=== PATIENT | male | born 1985 | race Caucasian/White ===

== ENCOUNTER 2018-10-15 15:52 | Observation (INO) ==
[2018-10-15 16:39] LABS: Basophils # (auto) 0.02 K/uL (0-0.2); Basophils % (auto) 0.1 %; Eosinophils # (auto) 0.05 K/uL (0-0.5); Eosinophils % (auto) 0.4 %; Hematocrit (blood only) 41.9 % (42-52); Hemoglobin 14.7 g/dL (14.0-18.0); Immature Granulocytes # (auto) 0.02 K/uL (0.00-0.02); Immature Granulocytes % (auto) 0.1 %; Lymphocytes # (auto) 2.31 K/uL (1.2-3.4); Mean Corpuscular Hgb Conc 35.1 g/dL (32-36); Mean Corpuscular Volume 86.4 fL (80-100); Mean Platelet Volume 10.9 fL (7.4-10.4); Monocytes # (auto) 0.98 K/uL (0.11-0.59); Monocytes % (auto) 7.2 %; Neutrophils # (auto) 10.19 K/uL (1.4-6.5); Neutrophils % (auto) 75.2 %; Platelet Count 237 K/uL (130-400); RDW Coefficient of Variation 13.3 % (11.5-14.5); RDW Standard Deviation 41.9 fL (36.4-46.3); Red Blood Count 4.85 M/uL (4.7-6.1); White Blood Count 13.57 K/uL (4.8-10.8)
[2018-10-15] MEDS ORDERED: KETOROLAC TROMETHAMINE 15 MG/ML VIAL IV ONE (16:47)
[2018-10-15] MEDS ORDERED: SODIUM CHLORIDE 0.9% 1000ML 1,000 ML IV SCH (17:00)
[2018-10-15 17:06] LABS: Albumin Level 3.8 gm/dl (3.4-5.0); BUN Creatinine Ratio 15.7 (10-20); Calcium 9.2 mg/dl (8.5-10.1); Creatinine Clr Calc Pharmacy 112.6 ml/min; Est GFR (African American) 133.6; Est GFR (Non-African American) 115.3; Potassium 4.1 mmol/L (3.5-5.1)
[2018-10-15 17:08] LABS: Albumin Globulin Ratio 0.8 (0.9-2); Bilirubin,Total 0.5 mg/dl (0.2-1); Globulin 4.8 gm/dl (2.5-4.0); Total Protein 8.6 gm/dl (6.4-8.2)
[2018-10-15] MEDS ORDERED: IOVERSOL 100ml IV PRN (17:19)
--- NOTE | 2018-10-15 17:29 | CT Scan Report ---
CT pelvis w/IV con only CLINICAL HISTORY: Rectal abscess. Possible fistula. COMPARISON STUDY: No previous studies for comparison. FINDINGS: The patient was scanned without oral contrast, and in a dynamic helical fashion during intr avenous administration of 94 cc of Optiray 320. The appendix appears normal. There is no evidence of abdominal aortic dilatation. There is no evidence of acute diverticulitis. There is no ascites. There is no pathologic adenopathy. No destructive skeletal lesions are visualized. There is a fluid collection in the left medial gluteal fold measuring 22 x 15 x 22 mm. This statistic ally represents a perianal/gluteal fold abscess. A discrete fistulous tract to the anus is not visual ized however this would be quite difficult to delineate on CT scanning. IMPRESSION: 1. 22 x 15 x 22 mm left medial gluteal fold fluid collection, suspicious for an abscess 2. Normal appendix 3. No evidence of pathologic bowel wall thickening Electronically signed by: Clarence Lawler M.D. 10/15/2018 5:28 PM
[2018-10-15] MEDS ORDERED: MoRPHine SULFATE 2 MG/ML CARP IV STA (17:39)
--- NOTE | 2018-10-15 18:00 | Emergency Department Note ---
ED Visit Note I took a history and physical exam from the patient and coordinated management with Dr. Vazquez .
[2018-10-15] MEDS ORDERED: MIDAZOLAM HCL 1 MG/ML 2ML VIAL ONE (18:31)
[2018-10-15] MEDS ORDERED: fentaNYL citrate 100 MCG/2 ML VIAL ONE ×2 (18:31→19:19)
--- NOTE | 2018-10-15 18:41 | Surgery Consultation ---
Date of Consultation October 15, 2018 Assessment & Plan (1) Abscess, perianal: pt is a 33 year old male who presents to ER with rectal pain, IMP: darin-anal abscess Plan, I recommend to do I/D darin-anal abscess, D/W benefits, risks nad alternatives of lexx surgery, the risks- infection , bleeding, sepsis, pt's friend who translate to pt, pt understood, he signed consent, I answered all questions, History of Present Illness History of Present Illness CC rectal pain pt is a 33 year old male who presents to ER with 4 days history rectal pain with constipation, lower temperature, 37.5, pt denies abdominal pain, no rectal bleeding, CT scan - darin-naal abscess, pt's friend who translate to pt, Allergies Allergy/AdvReac Type Severity Reaction Status Date / Time No Known Allergies Allergy Unverified 10/15/18 17:55 Home Medications Home Medications Medication Instructions Recorded Confirmed Type No Known Home Medications 10/15/18 10/15/18 History Patient History Medical History Constipation Social History current occupational status: employed Feels Safe at Home: Yes Smoking Status: Current some day smoker Review of Systems Constitutional: as per Subjective / HPI Ear, Nose, Mouth, Throat: as per Subjective / HPI Respiratory: as per Subjective / HPI Cardiovascular: as per Subjective / HPI Gastrointestinal: as per Subjective / HPI Neurologic: as per Subjective / HPI Psychiatric: as per Subjective / HPI Endocrine: as per Subjective / HPI Hematologic / Lymphatic: as per Subjective / HPI Physical Exam Vital Signs (Past 24 Hours): Last Vital Signs Temp 37.5 C 10/15/18 16:01 Pulse 91 H 10/15/18 16:01 Resp 19 10/15/18 16:01 BP 132/84 10/15/18 16:01 Pulse Ox 98 10/15/18 16:01 Constitutional: WD/WN, vitals as above well developed and well nourished Neck: trachea midline, no thyromegaly Respiratory: normal respiratory effort, lungs clear to auscultation normal respiratory effort Cardiovascular: RRR, no murmur, no edema Rate/Rhythm: regular rate and regular rhythm Heart Sounds: normal S1 and normal S2 Gastrointestinal (Abdomen): normal bowel sounds, soft, nontender, no hepatosplenomegaly Percussion/Palpation: abdomen soft NT, ND, BS +, rectal exam; tenderness and redness at left darin-anal area, size 3x3cm, Neurologic: awake Psychiatric: Orientation: alert and oriented x 3 Results & Data Laboratory Results Abnormal lab results 10/15/18 10/15/18 Range/Units 16:20 16:20 WBC 13.57 H (4.8-10.8) K/uL Hct 41.9 L (42-52) % MPV 10.9 H (7.4-10.4) fL Neut # (Auto) 10.19 H (1.4-6.5) K/uL Addison # (Auto) 0.98 H (0.11-0.59) K/uL Glucose 109 H (70-99) mg/dl Total Protein 8.6 H (6.4-8.2) gm/dl Globulin 4.8 H (2.5-4.0) gm/dl Albumin/Globulin Ratio 0.8 L (0.9-2) Diagnostic Findings CT pelvis w/IV con only CLINICAL HISTORY: Rectal abscess. Possible fistula. COMPARISON STUDY: No previous studies for comparison. FINDINGS: The patient was scanned without oral contrast, and in a dynamic helical fashion during intravenous administration of 94 cc of Optiray 320. The appendix appears normal. There is no evidence of abdominal aortic dilatation. There is no evidence of acute diverticulitis. There is no ascites. There is no pathologic adenopathy. No destructive skeletal lesions are visualized. There is a fluid collection in the left medial gluteal fold measuring 22 x 15 x 22 mm. This statistically represents a perianal/gluteal fold abscess. A discrete fistulous tract to the anus is not visualized however this would be quite difficult to delineate on CT scanning. IMPRESSION: 1. 22 x 15 x 22 mm left medial gluteal fold fluid collection, suspicious for an abscess 2. Normal appendix 3. No evidence of pathologic bowel wall thickening
--- NOTE | 2018-10-15 18:45 | History & Physical Bridge Note ---
Date of Service October 15, 2018 History & Physical Bridge Note I have examined the patient, reviewed the History & Physical and in the interval since the performance of the History & Physical I have noted the following changes of clinical significance: no changes noted
--- NOTE | 2018-10-15 18:52 | Anesthesiology Consultation ---
Date of Service October 15, 2018 Patient mostly speaks [place] Islander. Assessment & Plan Chart Review Chart Review: Acceptable Risk for Surgery and Patient NOT seen in Pre Admission Testing Consults Requested none ASA ASA2 Proposed Anesthesia Anesthesia Type: General Risk / Benefits Reviewed With: PT / POA / Parent / Guardian, Accepts Plan and Informed Consent Obtained NPO Date Last Intake of Fluids: 10/15/18 Time Last Intake of Fluids: 12:00 Date Last Intake of Solids: 10/15/18 Time Last Intake of Solids: 10:00 History Surgery Operation Date: 10/15/18 19:00 Proposed Procedures p Rectal Surgery - Jackie Coleman MD Height/Weight Height: 5 ft 6 in Weight: 74.5 kg Allergies Allergy/AdvReac Type Severity Reaction Status Date / Time No Known Allergies Allergy Unverified 10/15/18 17:55 Medications Home Medications Medication Instructions Recorded Confirmed Last Taken No Known Home Medications 10/15/18 10/15/18 Unknown Active Medications Generic Name Dose Route Start Last Admin Trade Name Freq PRN Reason Stop Dose Admin Ioversol 94 ml 10/15/18 17:19 10/15/18 17:19 Optiray 320 100ml IV 10/19/18 17:18 94 ml ONCE PRN Administration Interaction Checking Past Medical History Medical History Abscess, perianal (Acute) Constipation Smoker Past Anesthesia History No Hx of Anesthesia Complications and No Family Hx of Anesthesia Complications History of PONV No Motion Sickness Screening History of Motion Sickness: No Social History Smoking Status: Current some day smoker Exercise / Class Metabolic Activity II 4-5 Yardwork/Stairs/Walk up hill Review of Systems no chest pain or sob Physical Exam Vital Signs Last Vital Signs Temp 37.5 C 10/15/18 16:01 Pulse 93 H 10/15/18 18:50 Resp 18 10/15/18 18:50 BP 126/82 10/15/18 18:50 Pulse Ox 99 10/15/18 18:50 ENMT Mouth: no TMJ abnormality Thyromental Distance: > or= 3.5 Finger Breadths Mallampati Class: II Neck normal visual inspection Respiratory normal respiratory effort Cardiovascular Rate/Rhythm: regular rate and regular rhythm Neurologic moves all extremities Psychiatric Orientation: alert and oriented x 3 Testing Laboratory Results 10/15/18 16:20 10/15/18 16:20
[2018-10-15] MEDS ORDERED: LIDOCAINE HCL 1% 20 ML VIAL ONE (18:53)
[2018-10-15] MEDS ORDERED: BUPIVACAINE 0.5 % 5 MG/1 ML MPF 30ML VIAL ONE (18:53)
[2018-10-15] MEDS ORDERED: BACITRACIN OINT 15 GM TUBE ONE (18:53)
[2018-10-15] MEDS ORDERED: LABETALOL HCL IV 5 MG/ML 20ML IV PRN (18:55)
[2018-10-15] MEDS ORDERED: ePHEDrine sulfate 50 MG/ML AMP IV PRN (18:55)
[2018-10-15] MEDS ORDERED: HYDROmorphone INJ 1 MG/ML SYRINGE IV PRN (18:55)
[2018-10-15] MEDS ORDERED: PHENYLEPHRINE 100MCG/ML 5ML SYR IV PRN (18:55)
[2018-10-15] MEDS ORDERED: ATROPINE SULFATE 0.1 MG/ML 10ML SYR IV PRN (18:55)
[2018-10-15] MEDS ORDERED: ONDANSETRON INJ 2 MG/ML 2 ML VIAL IV PRN ×2 (18:55→19:33)
[2018-10-15] MEDS ORDERED: fentaNYL citrate 100 MCG/2 ML VIAL IV PRN (18:55)
[2018-10-15] MEDS ORDERED: MEPERIDINE HCL 25 MG/ML CARP IV PRN (18:55)
[2018-10-15] MEDS ORDERED: PROPOFOL IV EMULSION 10 MG/ML 20 ML VIAL IV ONE (18:57)
[2018-10-15] MEDS ORDERED: LIDOCAINE HCL 2% 2 ML VIAL/AMP(20MG/ML) INFIL ONE (18:57)
[2018-10-15] MEDS ORDERED: CEFAZOLIN 2000MG 2,000 MG/15 ML SYR IV SCH (19:00)
[2018-10-15] MEDS ORDERED: DEXAMETHASONE SOD INJ 4 MG/ML VIAL ONE (19:14)
[2018-10-15] MEDS ORDERED: ONDANSETRON INJ 2 MG/ML 2 ML VIAL ONE (19:14)
[2018-10-15] MEDS ORDERED: CEFAZOLIN 250 MG/ML 1 GM VIAL ONE (19:14)
[2018-10-15] MEDS ORDERED: KETOROLAC 30 MG/ML VIAL ONE (19:20)
--- NOTE | 2018-10-15 19:30 | Emergency Department Note ---
Entered by Shane Hearn acting as a scribe for History of Present Illness General Chief complaint: Abdominal Pain Stated complaint: LOWER ABDOMINAL PAIN Time Seen by Provider: 10/15/18 16:07 Source: patient Limitations: no limitations History of Present Illness Provider complaint: Rectal pain Onset (ago): day(s) (4) Location: buttocks Pain Consistency: + constant Maximum Pain Intensity: 10 Quality: + other ("pressure" over rectum) Treatments prior to arrival: other (MiraLax, Glycerin Suppository ) This history is provided by the patient's friend at bedside as he does not speak Spanish. The patient is a 33 year old male who presents to the Emergency Room with complaints of constant rectal pain for the past 4 days. The friend at bedside states that the patient has been constipated since this past Saturday. He tried a Glycerin Suppository and MiraLax, but did not produce any stool. Saturday the patient went to the walk-in clinic and was given MiraLax and DulcoLax. He did produce a bowel movement on Saturday, two days ago. After the stool the patient's rectal pain persisted. He describes his current pain as a "pressure" over his rectum. He denies any radiation of the pain. No other exacerbating or remitting factors. Home Medications Home Medications Medication Instructions Recorded Confirmed Type No Known Home Medications 10/15/18 10/15/18 History Allergies Allergy/AdvReac Type Severity Reaction Status Date / Time No Known Allergies Allergy Unverified 10/15/18 17:55 Past Med/Surg History Medical History Abscess, perianal (Acute) Constipation Smoker Social History current occupational status: employed Feels Safe at Home: Yes Smoking Status: Current some day smoker Review of Systems See HPI for pertinent positives & negatives. and A total of 10 systems reviewed and were otherwise negative Physical Exam Vital Signs Vital Signs - 24 hr 10/15/18 16:01 10/15/18 18:50 Temperature 37.5 C Temperature Source Oral Sepsis Recent Fever Within 48 Hours No Sepsis Action Taken by Nursing No Action Required Pulse Rate 91 H Pulse Rate [Finger] 93 H Respiratory Rate 19 18 Respiratory Effort / Characteristics Non-Labored Respiratory Depth Normal Blood Pressure 132/84 Blood Pressure [Right Arm] 126/82 Blood Pressure Mean 100 Blood Pressure Mean [Right Arm] 96 Blood Pressure Position Sitting Pulse Oximetry 98 99 Oxygen Delivery Method Room Air Room Air GENERAL: Sitting up in bed, alert, well appearing, well nourished, no distress, non-toxic EYE EXAM: normal conjunctiva. OROPHARYNX: no exudate, no erythema, lips, buccal mucosa, and tongue normal and mucous membranes are moist NECK: supple, no nuchal rigidity, no adenopathy, non-tender LUNGS: Clear to auscultation. Normal chest wall mechanics HEART: no murmurs, S1 normal and S2 normal ABDOMEN: abdomen soft, non-tender, normo-active bowel, sounds, no masses, no rebound or guarding. BACK: Back is symmetrical on inspection and there is no deformity, no midline tenderness, no CVA tenderness. SKIN: no rashes and no bruising UPPER EXTREMITIES: upper extremities are grossly normal. LOWER EXTREMITIES: No pitting edema. NEURO EXAM: Normal sensorium, cranial nerves II-XII grossly intact, normal speech, no gross weakness of arms, no gross weakness of legs. RECTAL: at the 9-12 o'clock position there is a 1 inch area of fluctuance. No surrounding erythema or induration. Tracking towards anus. Course ED COURSE: Vital signs were reviewed and showed normal vitals. The patients medical record was reviewed The above diagnostic studies were performed and reviewed. ED treatments and interventions as stated above. 1636: The patient was evaluated in room C12A. A complete history and physical examination was performed. 1823: The patient was seen and evaluated by Dr. Coleman - General Surgery. He will take him to the OR now. Administered Medications Ioversol (Optiray 320 100ml) 94 ml IV ONCE PRN PRN Reason: Interaction Checking Stop: 10/19/18 17:18 Last Admin: 10/15/18 17:19 Dose: 94 ml Documented by: [id number] Discontinued Medications Sodium Chloride (Nss 1000ml) 1,000 mls @ 999 mls/hr IV .Q1H1M OMAR Stop: 10/15/18 18:00 Last Infusion: 10/15/18 18:28 Dose: 0 mls/hr Documented by: [id number] Admin: 10/15/18 17:01 Dose: 999 mls/hr Documented by: [id number] Ketorolac Tromethamine (Toradol) 15 mg IV NOW ONE Stop: 10/15/18 16:48 Last Admin: 10/15/18 17:01 Dose: 15 mg Documented by: [id number] Medical Decision Making Differential Diagnosis Differential diagnosis: Etiologies such as functional constipation, drug effect, lack of activity, impaction, obstruction, volvulus, metabolic abnormality, infection, neurologic process, as well as others were entertained. Medical Records Attestation: I reviewed the patient's medical records. Home Medications Current Medication List: was personally reviewed by me Laboratory Data Attestation: I reviewed the patient's lab results. Result diagrams: 10/15/18 16:20 10/15/18 16:20 Lab Results 10/15/18 10/15/18 Range/Units 16:20 16:20 WBC 13.57 H (4.8-10.8) K/uL RBC 4.85 (4.7-6.1) M/uL Hgb 14.7 (14.0-18.0) g/dL Hct 41.9 L (42-52) % MCV 86.4 (80-100) fL MCH 30.3 (25-34) pg MCHC 35.1 (32-36) g/dL RDW Std Deviation 41.9 (36.4-46.3) fL RDW Coeff of Don 13.3 (11.5-14.5) % Plt Count 237 (130-400) K/uL MPV 10.9 H (7.4-10.4) fL Immature Gran % (Auto) 0.1 % Neut % (Auto) 75.2 % Lymph % (Auto) 17.0 % Harrison % (Auto) 7.2 % Eos % (Auto) 0.4 % Baso % (Auto) 0.1 % Immature Gran # (Auto) 0.02 (0.00-0.02) K/uL Neut # (Auto) 10.19 H (1.4-6.5) K/uL Lymph # (Auto) 2.31 (1.2-3.4) K/uL Harrison # (Auto) 0.98 H (0.11-0.59) K/uL Eos # (Auto) 0.05 (0-0.5) K/uL Baso # (Auto) 0.02 (0-0.2) K/uL Sodium 137 (136-145) mmol/L Potassium 4.1 (3.5-5.1) mmol/L Chloride 103 (98-107) mmol/L Carbon Dioxide 27 (21-32) mmol/L Anion Gap 6.0 (3-11) BUN 13 (7-18) mg/dl Creatinine 0.85 (0.6-1.4) mg/dl Est Cr Clr Drug Dosing 112.6 ml/min Est GFR ( Amer) 133.6 Est GFR (Non-Af Amer) 115.3 BUN/Creatinine Ratio 15.7 (10-20) Glucose 109 H (70-99) mg/dl Calcium 9.2 (8.5-10.1) mg/dl Total Bilirubin 0.5 (0.2-1) mg/dl AST 16 (15-37) U/L ALT 19 (12-78) U/L Alkaline Phosphatase 90 (45-117) U/L Total Protein 8.6 H (6.4-8.2) gm/dl Albumin 3.8 (3.4-5.0) gm/dl Globulin 4.8 H (2.5-4.0) gm/dl Albumin/Globulin Ratio 0.8 L (0.9-2) Lipase 82 (73-393) U/L Imaging Data Attestation: I personally reviewed and interpreted this imaging study as follows: Radiologist's Impression: CT pelvis w/IV con only CLINICAL HISTORY: Rectal abscess. Possible fistula. COMPARISON STUDY: No previous studies for comparison. FINDINGS: The patient was scanned without oral contrast, and in a dynamic helical fashion during intravenous administration of 94 cc of Optiray 320. The appendix appears normal. There is no evidence of abdominal aortic dilatation. There is no evidence of acute diverticulitis. There is no ascites. There is no pathologic adenopathy. No destructive skeletal lesions are visualized. There is a fluid collection in the left medial gluteal fold measuring 22 x 15 x 22 mm. This statistically represents a perianal/gluteal fold abscess. A discrete fistulous tract to the anus is not visualized however this would be quite difficult to delineate on CT scanning. IMPRESSION: 1. 22 x 15 x 22 mm left medial gluteal fold fluid collection, suspicious for an abscess 2. Normal appendix 3. No evidence of pathologic bowel wall thickening Electronically signed by: Clarence Lawler M.D. 10/15/2018 5:28 PM Blood Pressure Blood Pressure Findings: Normal blood pressure MDM Narrative Patient is a 33-year-old male who presents the ER for rectal pain. This is been there for the past week and getting worse. On exam he has a likely rectal abscess. Labs were obtained and showed a leukocytosis of 13.5 thousand. No significant anemia. BMP along with LFTs bilirubin lipase was unremarkable. CT abdomen pelvis confirms darin-anal abscess. Patient was given IV Zofran and Toradol. Patient was updated and discussed with the hospitalist. Patient was taken to the OR for the perianal abscess. Impression & Plan Abscess, perianal Discharge Plan Visit Data Chief Complaint: Abdominal Pain Stated Complaint: LOWER ABDOMINAL PAIN ED Provider: Brent Vazquez ED Midlevel Provider: Abimael Bustillo Discharge Problem: Abscess, perianal Patient Disposition: Being Evaluated by Surgeon Discharge Instructions Interventions: ED Discharge Assessment Last Done: 10/15/18 18:52 Forms Stand Alone Forms: Call Back Authorization, [facility], Important Visit Information Prescriptions Prescriptions: No Action No Known Home Medications RF: 0 Referrals Referrals: PCP,NO [Primary Care Provider] - The scribe's documentation has been prepared under my direction and personally reviewed by me in its entirety. I confirm that the note above accurately reflects all work, treatment, procedures, and medical decision making performed by me.
--- NOTE | 2018-10-15 19:31 | Post Operative Brief Note ---
Immediate Post Op Note v1 Date of Surgery October 15, 2018 Pre & Post Diagnosis Operation Date: 10/15/18 19:00 Pre-Op Diagnosis: Darin rectal abscess Post-Op Diagnosis: Darin rectal abscess Procedure Operation Date: 10/15/18 19:00 Actual Procedures p Incision and Drainage of Darin Rectal Abscess - Jackie Coleman MD Surgeon Jackie Coleman MD [employer] certified surgical tech/first assistant Estimated Blood Loss 10 Findings Consistent with Post-Op Diagnosis left darin-rectal abscess Fluids 600ml Specimens wound culture sent Drains Other (packing the wound) Anesthesia Type General Complications none Disposition Accompanied Patient To Recovery: Yes Disposition: Recovery Room Overlapping Procedure I was immediately available: during the entire case.
[2018-10-15] MEDS ORDERED: OXYCODONE/ACETAMINOPHEN 5mg/325mg TAB PO PRN (19:36)
[2018-10-15] MEDS ORDERED: HYDROmorphone INJ 0.5 MG/0.5 ML SYR IV PRN (19:37)
[2018-10-15] MEDS ORDERED: CEFAZOLIN 2000MG 2,000 MG/15 ML SYR IV ONE (19:41)
--- NOTE | 2018-10-15 19:55 | Anesthesiology Progress Note ---
Date of Service October 15, 2018 Anesthesia Post Procedure Vital Signs Vital Signs: Temp Pulse Pulse Resp BP BP Pulse Ox 10/15/18 19:50 75 19 118/72 100 10/15/18 19:45 77 17 114/75 99 10/15/18 19:42 79 19 96 10/15/18 19:40 81 19 116/72 97 10/15/18 19:39 36.9 C 85 16 116/72 97 10/15/18 18:50 93 H 18 126/82 99 10/15/18 16:01 37.5 C 91 H 19 132/84 98 Notes Mental Status: alert / awake / arousable Patient Amnestic to Procedure: Yes Nausea / Vomiting: adequately controlled Pain: adequately controlled Airway Patency, RR, SpO2: stable & adequate BP & HR: stable & adequate Hydration State: stable & adequate Anesthetic Complications: no major complications apparent and Pt Satisfied with anesthetic care
[2018-10-15] MEDS: LACTATED RINGER'S 1,000 ML IV SCH (21:21)
[2018-10-15] MEDS: CIPROFLOXACIN 400 MG/200 ML BAG IV SCH (21:40)
[2018-10-15] MEDS: metroNIDAZOLE 500 MG/100 ML BAG IV SCH (22:32)
[2018-10-16 00:08] LABS: Appearance Urine Clear (Clear); Bacteria Urine Automated Negative (Negative); Bilirubin Urine Negative (Negative); Blood Urine 2+ (Negative); Color Urine Yellow; Glucose Urine UA Trace (Negative); Ketones Urine Negative (Negative); Leukocyte Esterase Urine Negative (Negative); Nitrite Urine Negative (Negative); Protein Urine 1+ (Negative); Specific Gravity Urine 1.042 (1.000-1.030); Urobilinogen Urine Negative (Negative)
--- NOTE | 2018-10-16 03:02 | Operative Report ---
DATE OF OPERATION: 10/15/2018 PREOPERATIVE DIAGNOSIS: Perirectal abscess. POSTOPERATIVE DIAGNOSIS: Perirectal abscess. OPERATION: I and D of perirectal abscess. SURGEON: Jackie Coleman MD ANESTHESIA: General. ESTIMATED BLOOD LOSS: About 10 mL FINDINGS: Perirectal abscess on the left side. COMPLICATIONS: None. INDICATIONS FOR THE PROCEDURE: This is a 33-year-old gentleman who presented with rectal pain and the patient had a CT scan diagnosis of perirectal abscess. I recommend to do the I and D of perirectal abscess. I did talk to the patient about the benefit and risk, alternate procedure. I indicated the risks may include but not limited such as bleeding, infection, recurrence, sepsis. The patient understands via the assistant director. He signed informed consent and I answered all questions. DETAILS OF PROCEDURE: We brought the patient to the OR, put the patient in the supine position. The patient received SCD on bilateral legs to prevent DVT. Also, patient received 2 grams Ancef IV for prophylactic antibiotic. The patient received general anesthesia without difficulty. Then we repositioned to the lithotomy position. The rectal area was prepped and draped in routine sterile fashion. After a timeout, I injected local anesthesia by using 1% lidocaine mixed with 0.5% Marcaine around the rectal area. Then we found the patient has an abscess on the left side perirectal size about 3 x 4 cm. Then I made about 3 cm incision on the left side perirectal area. There was pus immediately come out about 10 mL Once we cleaned up all of the abscess cavity and we packed with quarter inch Kerlix. Hemostasis again obtained. Then we put the dressing on. The patient tolerated the procedure well. All the instrument, needle and sponge count were correct x2 at the end of case. The patient transferred to recovery room in stable condition. After the procedure, I did talk to the patient's friend who is a assistant director. She understands. I attest to the content of the Intraoperative Record and any orders documented therein. Any exception s are noted below.
[2018-10-16 05:10] LABS: Basophils # (auto) 0.01 K/uL (0-0.2); Basophils % (auto) 0.1 %; Eosinophils # (auto) 0.01 K/uL (0-0.5); Eosinophils % (auto) 0.1 %; Hematocrit (blood only) 38.1 % (42-52); Hemoglobin 12.8 g/dL (14.0-18.0); Immature Granulocytes # (auto) 0.02 K/uL (0.00-0.02); Immature Granulocytes % (auto) 0.2 %; Lymphocytes # (auto) 1.15 K/uL (1.2-3.4); Lymphocytes % (auto) 13.2 %; Mean Corpuscular Hgb Conc 33.6 g/dL (32-36); Mean Corpuscular Volume 87.4 fL (80-100); Mean Platelet Volume 10.3 fL (7.4-10.4); Monocytes # (auto) 0.42 K/uL (0.11-0.59); Monocytes % (auto) 4.8 %; Neutrophils # (auto) 7.12 K/uL (1.4-6.5); Neutrophils % (auto) 81.6 %; Platelet Count 207 K/uL (130-400); RDW Coefficient of Variation 13.1 % (11.5-14.5); RDW Standard Deviation 42.4 fL (36.4-46.3); Red Blood Count 4.36 M/uL (4.7-6.1); White Blood Count 8.73 K/uL (4.8-10.8)
[2018-10-16] MEDS: metroNIDAZOLE 500 MG/100 ML BAG IV SCH (06:27)
[2018-10-16] MEDS: CIPROFLOXACIN 400 MG/200 ML BAG IV SCH (08:17)
[2018-10-16] MEDS ORDERED: BISACODYL 5 MG TABEC PO ONE (10:58)
[2018-10-16] MEDS: LACTATED RINGER'S 1,000 ML IV SCH (11:22)
--- NOTE | 2018-10-16 11:26 | Surgery Progress Note ---
Date of Service October 16, 2018 Assessment & Plan (1) Abscess, perianal: POD # 1 s/p I&D perianal abscess -vitals stable, afebrile -no leukocytosis - pain controlled - tolerating diet Plan: Discharge home today Discussed discharge instructions with patient's Boss who translated for me Rx Cipro/flagyl for 1 week Rx Percocet q 6 hours prn pain f/u surgical office on Saturday (already scheduled by patient's boss today) for packing change Dr. Coleman saw patient this morning, agrees with above Subjective patient's boss present in room for translation since pt speaks little kyr[place]z minimal pain, controlled tolerating diet no n/v preop pain resolved Physical Exam Vital Signs (Past 24 Hours): Last Vital Signs Temp 36.5 C 10/16/18 07:35 Pulse 62 10/16/18 07:35 Resp 16 10/16/18 07:35 BP 101/65 10/16/18 07:35 Pulse Ox 96 10/16/18 07:35 Constitutional: WD/WN, vitals as above no acute distress and not ill appearing Respiratory: normal respiratory effort; no respiratory distress Gastrointestinal (Abdomen): External rectal exam: Dressing present, removed, perirectal wound with no erythema, packing present. Mild tenderness to palpation. Skin: no rashes, warm and dry Psychiatric: A+Ox3, euthymic affect Results & Data Laboratory Results 10/16/18 10/15/18 10/15/18 Range/Units 04:57 23:45 23:45 WBC 8.73 (4.8-10.8) K/uL RBC 4.36 L (4.7-6.1) M/uL Hgb 12.8 L (14.0-18.0) g/dL Hct 38.1 L (42-52) % MCV 87.4 (80-100) fL MCH 29.4 (25-34) pg MCHC 33.6 (32-36) g/dL RDW Std Deviation 42.4 (36.4-46.3) fL RDW Coeff of Don 13.1 (11.5-14.5) % Plt Count 207 (130-400) K/uL MPV 10.3 (7.4-10.4) fL Immature Gran % (Auto) 0.2 % Neut % (Auto) 81.6 % Lymph % (Auto) 13.2 % Saline % (Auto) 4.8 % Eos % (Auto) 0.1 % Baso % (Auto) 0.1 % Immature Gran # (Auto) 0.02 (0.00-0.02) K/uL Neut # (Auto) 7.12 H (1.4-6.5) K/uL Lymph # (Auto) 1.15 L (1.2-3.4) K/uL Saline # (Auto) 0.42 (0.11-0.59) K/uL Eos # (Auto) 0.01 (0-0.5) K/uL Baso # (Auto) 0.01 (0-0.2) K/uL Sodium (136-145) mmol/L Potassium (3.5-5.1) mmol/L Chloride (98-107) mmol/L Carbon Dioxide (21-32) mmol/L Anion Gap (3-11) BUN (7-18) mg/dl Creatinine (0.6-1.4) mg/dl Est Cr Clr Drug Dosing ml/min Est GFR ( Amer) Est GFR (Non-Af Amer) BUN/Creatinine Ratio (10-20) Glucose (70-99) mg/dl Calcium (8.5-10.1) mg/dl Total Bilirubin (0.2-1) mg/dl AST (15-37) U/L ALT (12-78) U/L Alkaline Phosphatase (45-117) U/L Total Protein (6.4-8.2) gm/dl Albumin (3.4-5.0) gm/dl Globulin (2.5-4.0) gm/dl Albumin/Globulin Ratio (0.9-2) Lipase (73-393) U/L Urine Color Yellow Urine Appearance Clear (Clear) Urine pH 6.0 (4.5-7.5) POC Urine pH Pending Ur Specific [place] 1.042 H (1.000-1.030) Urine Protein 1+ H (Negative) POC Urine Protein Pending Urine Glucose (UA) Trace H (Negative) POC Ur Glucose (UA) Pending Urine Ketones Negative (Negative) POC Urine Ketones Pending Urine Blood 2+ H (Negative) POC Urine Blood Pending Urine Nitrite Negative (Negative) POC Urine Nitrite Pending Urine Bilirubin Negative (Negative) POC Urine Bilirubin Pending Urine Urobilinogen Negative (Negative) POC Urine Urobilinogen Pending Ur Leukocyte Esterase Negative (Negative) POC U Leukocyte Esteras Pending Urine WBC (Auto) 1-5 (0-5) /hpf Urine RBC (Auto) 10-30 H (0-4) /hpf U Hyaline Cast (Auto) 1-5 (0-5) /lpf U Epithel Cells (Auto) 5-10 H (0-5) /lpf Urine Bacteria (Auto) Negative (Negative) 10/15/18 10/15/18 Range/Units 16:20 16:20 WBC 13.57 H (4.8-10.8) K/uL RBC 4.85 (4.7-6.1) M/uL Hgb 14.7 (14.0-18.0) g/dL Hct 41.9 L (42-52) % MCV 86.4 (80-100) fL MCH 30.3 (25-34) pg MCHC 35.1 (32-36) g/dL RDW Std Deviation 41.9 (36.4-46.3) fL RDW Coeff of Don 13.3 (11.5-14.5) % Plt Count 237 (130-400) K/uL MPV 10.9 H (7.4-10.4) fL Immature Gran % (Auto) 0.1 % Neut % (Auto) 75.2 % Lymph % (Auto) 17.0 % Saline % (Auto) 7.2 % Eos % (Auto) 0.4 % Baso % (Auto) 0.1 % Immature Gran # (Auto) 0.02 (0.00-0.02) K/uL Neut # (Auto) 10.19 H (1.4-6.5) K/uL Lymph # (Auto) 2.31 (1.2-3.4) K/uL Saline # (Auto) 0.98 H (0.11-0.59) K/uL Eos # (Auto) 0.05 (0-0.5) K/uL Baso # (Auto) 0.02 (0-0.2) K/uL Sodium 137 (136-145) mmol/L Potassium 4.1 (3.5-5.1) mmol/L Chloride 103 (98-107) mmol/L Carbon Dioxide 27 (21-32) mmol/L Anion Gap 6.0 (3-11) BUN 13 (7-18) mg/dl Creatinine 0.85 (0.6-1.4) mg/dl Est Cr Clr Drug Dosing 112.6 ml/min Est GFR ( Amer) 133.6 Est GFR (Non-Af Amer) 115.3 BUN/Creatinine Ratio 15.7 (10-20) Glucose 109 H (70-99) mg/dl Calcium 9.2 (8.5-10.1) mg/dl Total Bilirubin 0.5 (0.2-1) mg/dl AST 16 (15-37) U/L ALT 19 (12-78) U/L Alkaline Phosphatase 90 (45-117) U/L Total Protein 8.6 H (6.4-8.2) gm/dl Albumin 3.8 (3.4-5.0) gm/dl Globulin 4.8 H (2.5-4.0) gm/dl Albumin/Globulin Ratio 0.8 L (0.9-2) Lipase 82 (73-393) U/L Urine Color Urine Appearance (Clear) Urine pH (4.5-7.5) POC Urine pH Ur Specific [place] (1.000-1.030) Urine Protein (Negative) POC Urine Protein Urine Glucose (UA) (Negative) POC Ur Glucose (UA) Urine Ketones (Negative) POC Urine Ketones Urine Blood (Negative) POC Urine Blood Urine Nitrite (Negative) POC Urine Nitrite Urine Bilirubin (Negative) POC Urine Bilirubin Urine Urobilinogen (Negative) POC Urine Urobilinogen Ur Leukocyte Esterase (Negative) POC U Leukocyte Esteras Urine WBC (Auto) (0-5) /hpf Urine RBC (Auto) (0-4) /hpf U Hyaline Cast (Auto) (0-5) /lpf U Epithel Cells (Auto) (0-5) /lpf Urine Bacteria (Auto) (Negative)
[2018-10-16] MEDS ORDERED: DOCUSATE SODIUM 100 MG CAP PO SCH (11:30)
== END 2018-10-16 13:55 | disposition home or self-care (01) ==
LOC: ED 15:52 → 3W 18:52 → OR 18:52